=== PATIENT | male | born 1940 | race Caucasian/White ===

== ENCOUNTER 2018-11-10 07:22 | Day surgery (SDC) | payer MEDICARE, OTHER ==
[2018-11-10] MEDS ORDERED: NACL 0.9% 1000 ML 1,000 ML ONE (07:38)
[2018-11-10] MEDS ORDERED: NACL 0.9% 1000 ML 1,000 ML IV SCH (08:00)
[2018-11-10] MEDS ORDERED: WATER FOR IRRIG STERILE IR ONE (08:00)
[2018-11-10] MEDS ORDERED: XYLOCAINE 1% 20 mL ONE (08:27)
[2018-11-10] MEDS ORDERED: DIPRIVAN 10 MG/ML IV ONE ×2 (08:27)
[2018-11-10] MEDS ORDERED: VERSED ONE (08:27)
--- NOTE | 2018-11-10 09:30 | Operative Report ---
PROCEDURE: EGD with biopsy. INDICATIONS: A 78-year-old gentleman originally from [facility] who had been having some loose stools, abdominal pain. EGD was done to make sure he did not have any associated celiac disease. DESCRIPTION OF PROCEDURE: Procedure was done after getting informed consent with MAC anesthesia. Instrument was passed through the hypopharynx into the esophagus, which showed moderate erosive esophagitis. Photo documentation and biopsy was obtained. Stomach showed gastric erosion, mainly in the antrum and gastritis. Biopsy was done from the gastric antrum, gastric body and angular incisura to rule out for H. pylori and atrophic gastritis. The pylorus was patent. The duodenum in the bulb showed duodenitis. Biopsy was done from the second part to rule out for possible celiac disease. There was minimal bleeding from the biopsy sites. No complications associated with the procedure. Procedure was done with the assistance of anesthesia and then in the presence and with the assistance of the GI lab team, which included Yarelis CRABTREE and Lavon jasso. ASSESSMENT: Abdominal pain and GERD, moderate erosive esophagitis, gastric erosion, gastritis, duodenitis, celiac disease. PLAN: Wait for the biopsy results. The patient will be advised to avoid aspirin and aspirin-related products for the next few days. Follow up in the office in 1-2 weeks' time and treatment with PPI and again procedure was done in the presence of Yarelis CRABTREE and with the assistance of the Lavon jasso. JOB# [id number] SARAH/YEE
--- NOTE | 2018-11-10 09:32 | Procedure Note ---
Date of procedure: 11/10/18 Pre-op diagnosis: Abdominal Pain/ Diarrhea/ H/O Colon Polyps Post-op diagnosis: other (Moderate,Erosive Esophagitis/Gastric Erosion/Gastritis/Duodenitis/R/O Celiac Disease/ Multiple,Small colon Polyps (Rectal and Transverse Colon)/Extensive,Deep Diverticular Disease/Mild to Moderate, Internal Hemorrhoid) Procedure: EGD with Biopsy and Colonoscopy with Snare Polypectomy and Hot and Cold Biopsy Anesthesia: [facility] [place] Surgeon: ANGIE HOU Estimated blood loss: minimal Pathology: list Specimen disposition: to lab Condition: stable Disposition: same day (Treat with PPI and encourage fiber intake and follow up in 1 to 2 weeks ([phone]). Resume home medication but avoid aspirin and NSAID and anticoagulants for 4 days.)
--- NOTE | 2018-11-10 09:34 | Operative Report ---
PROCEDURE: Colonoscopy with snare polypectomy and hot and cold biopsy. INDICATIONS: A 78-year-old gentleman originally from [facility] who has a prior history of a large colon polyp. DESCRIPTION OF PROCEDURE: The procedure was done to make sure there was not any recurrence of any polyps. The procedure was done with MAC anesthesia. Initial rectal exam was unremarkable. Instrument was passed through the rectum onto the cecum, which was identified with ileocecal valve and the appendiceal orifice. The patient had scattered diverticula throughout the colon, most pronounced in the left colon, some of which were quite deep. In the transverse colon, there were four small polyps noted from the proximal to the distal colon. These were removed by cold biopsy and remaining part of the descending colon and sigmoid showed normal mucosa. There was a moderate polyp about 9-10 mm in diameter that was removed by cold biopsy and removed by snare polypectomy and the remnants were removed by using hot biopsy forceps. There was minimal bleeding from the biopsy sites. No complications associated with the procedure. The patient also had mild to moderate internal hemorrhoids. ASSESSMENT: 1. History of colon polyps, multiple colon polyps noted in the rectum and in the transverse colon removed by cold snare polypectomy as well as using the biopsy forceps. Mild to moderate internal hemorrhoid and extensive deep diverticular disease. The patient will be asked to avoid aspirin and aspirin-related products for the next few days. Encouraged to take fiber supplements. Follow up in the office in 1-2 weeks' time. The procedure was done with the assistance of anesthesia and in the presence and with the assistance of the GI lab team, which included Yarelis CRABTREE and Lavon jasso. JOB# [id number] SARAH/YEE
[2018-11-10 09:46] VITALS: BP 114/60
--- NOTE | 2018-11-10 12:48 | Anesthesia Day of Surgery ---
Anesthesia Day of Surgery - Day of Surgery Patient Examined: Yes Patient H&P Reviewed: Yes Patient is NPO: Yes
--- NOTE | 2018-11-10 12:51 | Anesthesia Consultation ---
Anesthesia Consult and Med Hx Date of service: 11/10/18 - Airway Anesthetic Teeth Evaluation: Good ROM Head & Neck: Adequate Mental/Hyoid Distance: Adequate Mallampati Class: Class III Intubation Access Assessment: Possibly Difficult - Pre-Operative Health Status ASA Pre-Surgery Classification: ASA3 Proposed Anesthetic Plan: MAC - Cardiovascular System Hx Hypertension: Yes Hx Coronary Artery Disease: Yes (CABG, STENTS, HIGH CHOLESTEROL) - Other Systems Hx Cancer: Yes (PROSTATE) - Additional Comments Anesthesia Medical History Comments: Per Dr. Fontaine, Patient has cardiac clearance at his office. Ok to proceed.
== END 2018-11-10 07:23 | disposition home or self-care (01) ==
LOC: GIO 07:22
DX: K29.50 Unspecified chronic gastritis without bleeding (principal); K21.0 Gastro-esophageal reflux disease with esophagitis; K63.5 Polyp of colon; K62.1 Rectal polyp; K31.89 Other diseases of stomach and duodenum; K57.30 Diverticulosis of large intestine without perforation or abscess without bleeding; K90.0 Celiac disease; K64.8 Other hemorrhoids; K29.80 Duodenitis without bleeding; I10 Essential (primary) hypertension; I25.10 Atherosclerotic heart disease of native coronary artery without angina pectoris; Z95.5 Presence of coronary angioplasty implant and graft; Z85.46 Personal history of malignant neoplasm of prostate; Z95.1 Presence of aortocoronary bypass graft; Z79.82 Long term (current) use of aspirin; Z79.899 Other long term (current) drug therapy; Z88.2 Allergy status to sulfonamides; Z88.8 Allergy status to other drugs, medicaments and biological substances
CPT/HCPCS: 43239; 45380; 45385; 88305; 88342; J2250; J2704; J7030

== ENCOUNTER 2020-11-14 08:09 | Day surgery (SDC) | payer MEDICARE ==
[~2020-11-14 08:09] MED LIST: SODIUM CHLORIDE 0.9% 1000 ML 1,000 ML IV SCH
--- NOTE | 2020-11-14 08:54 | Anesthesia Consultation ---
Anesthesia Consult and Med Hx Date of service: 11/14/20 - Airway Anesthetic Teeth Evaluation: Good ROM Head & Neck: Adequate Mental/Hyoid Distance: Adequate Mallampati Class: Class III Intubation Access Assessment: Possibly Difficult - Pre-Operative Health Status ASA Pre-Surgery Classification: ASA3 Proposed Anesthetic Plan: MAC - Pulmonary Hx Smoking: No Hx Respiratory Symptoms: No - Cardiovascular System Hx Hypertension: Yes (took losartan this morning) Hx Coronary Artery Disease: Yes (off ASA x2 days) Hx Heart Attack/AMI: No Hx Percutaneous Transluminal Coronary Angioplasty (PTCA): Yes (remote hx stents x2) - Central Nervous System CVA: No - Endocrine Hx Renal Disease: No Hx Liver Disease: No Hx Insulin Dependent Diabetes: No Hx Non-Insulin Dependent Diabetes: No Hx Hypothyroidism: Yes - Additional Comments Anesthesia Medical History Comments: No hx anesthetic complications.
--- NOTE | 2020-11-14 08:54 | Anesthesia Day of Surgery ---
Anesthesia Day of Surgery - Day of Surgery Patient Examined: Yes Patient H&P Reviewed: Yes Patient is NPO: Yes
[2020-11-14] MEDS ORDERED: propofoL 200 MG/20 ML VIAL IV ONE ×3 (09:18→10:12)
[2020-11-14] MEDS ORDERED: fentaNYL 100 MCG/2 ML INJ ONE (09:18)
[2020-11-14] MEDS ORDERED: GLYCOPYRROLATE 0.4 MG/2 ML INJ ONE (09:29)
[2020-11-14] MEDS ORDERED: LIDOCAINE MPF (2%) 20 MG/1 ML VIAL 5 ML ONE (09:30)
[2020-11-14] MEDS ORDERED: ONDANSETRON 4 MG/2 ML INJ ONE (09:41)
--- NOTE | 2020-11-14 10:30 | Procedure Note ---
Date of procedure: 11/14/20 Pre-op diagnosis: Dytpspesia/ Colon Polyp Screening/ P/H/O Colon Polyps Post-op diagnosis: other (Mild to moderate Erosive Esophagitis/ Gastritis/ R/O Celiac disease/ Colon Polyps (three) in the Transverse Colon/ Moderate, Diverticular disease (most pronounced in the left colon)/Mild to Moderate Internal Hemorrhoid) Procedure: EGD with Biopsy/ Colonoscopy with Cold Snare Polypectomy and Cold Biopsy Anesthesia: [facility] [place] Surgeon: ANGIE HOU Estimated blood loss: minimal Pathology: none Specimen disposition: to lab Condition: stable Disposition: same day (Treat with PPI, and encourage fiberintake. Avoid aspirin ad NSAID and anticoagulants for 5 days and avoid Alcohol and F/U in 2 weeks ([phone]).)
[2020-11-14 11:16] VITALS: BP 143/69
--- NOTE | 2020-11-14 11:20 | Post Anesthesia Evaluation ---
- Post Anesthesia Evaluation Patient Participated: Yes Airway Patent: Yes Stable Respiratory Function: Yes Nausea/Vomiting: No Temp > 96.8F: Yes Pain Manageable: Yes Adequeate Hydration: Yes Anesthesia Complications: No
--- NOTE | 2020-11-14 11:36 | Operative Report ---
DATE OF SURGERY: 11/14/2020 PROCEDURE: Colonoscopy with cold snare polypectomy and biopsy done. DESCRIPTION OF PROCEDURE: He had EGD done prior to the colonoscopy, which showed moderate erosive esophagitis, gastritis and biopsy was also done to rule out for possible celiac disease. Initial rectal examination was unremarkable. The instrument was passed through the rectum onto the cecum. The patient had a redundant colon with some degree of difficulties. Visualization was fair to good. The mucosa had to be washed with copious amounts of water since the patient's prep was fair to good as stated above. There was diverticular disease noted throughout the colon, most pronounced in the left colon. The cecum, ascending colon showed a few scattered diverticula. There were 3 colon polyps noted in the transverse colon, 2 in the proximal, one in the mid. The two proximal transverse colon polyps were removed with cold snare polypectomy and retrieved and a smaller one was removed by cold biopsy. Again, there was moderate diverticular disease, some of which were deep in the left colon and the rectum showed mild to moderate internal hemorrhoid. There was minimal bleeding associated with the procedure. No complications associated with the procedure. ASSESSMENT: History of colon polyps. Colon polyps were noted in the transverse colon, 3 in number, moderate deep diverticular disease, most pronounced in the left colon, mild to moderate internal hemorrhoid. POSTOPERATIVE PLAN: The patient will be asked to avoid aspirin and aspirin-related products for the next few days. Encouraged to take fiber supplements and follow up in the office in 1-2 weeks' time. The patient will also be placed on PPI because of the EGD findings of esophagitis and gastritis. Further treatment adjustment will be according to the biopsy findings. TID: [id number] RECEIPT: [id number] SARAH/PUHSPA
--- NOTE | 2020-11-14 12:27 | Operative Report ---
DATE OF SURGERY: 11/14/2020 PROCEDURE: EGD with biopsy. INDICATIONS: A 78-year-old gentleman who has been complaining of dyspeptic symptoms. EGD was done to make sure there was not any significant upper gastrointestinal pathology present. DESCRIPTION OF PROCEDURE: The procedure was done after getting informed consent with MAC anesthesia. The instrument was passed through the hypopharynx into the esophagus, which showed moderate erosive esophagitis. The stomach showed gastritis. Biopsy was done from the gastric antrum, gastric body and angular incisura to rule out for H. pylori and atrophic gastritis. Biopsy was also done from the distal esophagus to assess for the severity of the erosive esophagitis. The pylorus is patent. The duodenum in the first and second portion appeared normal. Biopsy was done from the second part of the duodenum to rule out for possible celiac disease. There was minimal bleeding associated with the procedure. No complications associated with the procedure. IMPRESSION: Dyspepsia, moderate erosive esophagitis, gastritis, rule out celiac disease. PLAN: To treat the patient with PPI, have the patient avoid aspirin and aspirin-related products. A colonoscopy will be done for further assessment to see whether the patient has any colon polyps. He has prior history of colon polyps and he will be asked to follow up in the office in 1-2 weeks' time. Procedure was done in the GI lab with assistance of the GI lab team, which included the GI nurse, graphics edit technician and anesthesia. TID: [id number] RECEIPT: [id number] BRAD
== END 2020-11-14 11:05 | disposition home or self-care (01) ==
LOC: GIO 08:09
DX: Z12.11 Encounter for screening for malignant neoplasm of colon (principal); R13.10 Dysphagia, unspecified; K29.50 Unspecified chronic gastritis without bleeding; K21.00 Gastro-esophageal reflux disease with esophagitis, without bleeding; D12.3 Benign neoplasm of transverse colon; K63.89 Other specified diseases of intestine; K31.89 Other diseases of stomach and duodenum; I10 Essential (primary) hypertension; I25.10 Atherosclerotic heart disease of native coronary artery without angina pectoris; N40.0 Benign prostatic hyperplasia without lower urinary tract symptoms; Z86.010 Personal history of colon polyps; Z88.2 Allergy status to sulfonamides; Z88.8 Allergy status to other drugs, medicaments and biological substances; Z79.82 Long term (current) use of aspirin; Z79.899 Other long term (current) drug therapy; Z98.890 Other specified postprocedural states
CPT/HCPCS: 43239; 45380; 45385; 88305; J2405; J2704; J3010; J7030; 88342

== ENCOUNTER 2021-12-11 10:32 | Day surgery (SDC) | payer MEDICARE ==
--- NOTE | 2021-12-11 12:23 | Anesthesia Consultation ---
Anesthesia Consult and Med Hx Date of service: 12/11/21 - Airway Anesthetic Teeth Evaluation: Good ROM Head & Neck: Adequate Mental/Hyoid Distance: Adequate Mallampati Class: Class III Intubation Access Assessment: Possibly Difficult - Pre-Operative Health Status ASA Pre-Surgery Classification: ASA3 Proposed Anesthetic Plan: MAC - Pulmonary Hx Smoking: No Hx Respiratory Symptoms: No - Cardiovascular System Hx Hypertension: Yes (took losartan today) Hx Coronary Artery Disease: Yes (s/p 3v CABG ~2013) Hx Heart Attack/AMI: No Hx Cardia Arrhythmia: No - Central Nervous System CVA: No - Endocrine Hx Renal Disease: No Hx Liver Disease: No Hx Insulin Dependent Diabetes: No Hx Non-Insulin Dependent Diabetes: No Hx Hypothyroidism: Yes - Additional Comments Anesthesia Medical History Comments: No hx anesthetic complications.
--- NOTE | 2021-12-11 12:24 | Anesthesia Day of Surgery ---
Anesthesia Day of Surgery - Day of Surgery Patient Examined: Yes Patient H&P Reviewed: Yes Patient is NPO: Yes
[2021-12-11] MEDS ORDERED: propofoL 200 MG/20 ML VIAL IV ONE ×3 (12:40→13:21)
--- NOTE | 2021-12-11 13:38 | Procedure Note ---
Date of procedure: 12/11/21 Pre-op diagnosis: Colon Polyp Screening/ H/O Colon Polyps Post-op diagnosis: other (Multiple, Transverse Colon Polyps/ Left, Colon Dioverticular Disease ( Deep ad Moderately severe)/ No Internal Hemorrhoids) Procedure: Colonoscopy with Cold Biopsy/ Hot and Cold Snare Polypectomy Anesthesia: MAC Surgeon: ANGIE HOU Estimated blood loss: minimal Pathology: list Specimen disposition: to lab Condition: stable Disposition: same day (Avoid aspirin ad NSAID and anticoagulats for 5 days; otherwise resume previous medication and F/U in 2 - 3 weeks and encourage fiber intake.)
--- NOTE | 2021-12-11 13:57 | Operative Report ---
DATE OF SURGERY: 12/11/2021 PROCEDURE: Colonoscopy. INDICATIONS: This is a 81-year-old gentleman who has prior history of colon polyp. Colonoscopy was done to repeat and check for any additional polyps. DESCRIPTION OF PROCEDURE: Procedure was done after getting informed consent with MAC anesthesia. Initial rectal examination was unremarkable. The instrument was passed through the rectum onto the cecum, which was identified with ileocecal valve and appendiceal orifice. Visualization was fair. Cecum, ascending colon showed normal mucosa. In the proximal transverse colon, there were 3 medium sized polyps ranging in size from 10-13 mm in diameter. These were removed by hot snare polypectomy and retrieved. In the mid transverse, there were 3 polyps, also noted to be removed by cold biopsy and one by cold snare polypectomy and also retrieved. There were a few diverticula in the distal transverse colon and moderately severe diverticular disease, some of which were deep in the left colon. The rectum did not show any internal hemorrhoids. There was minimal bleeding associated with the polypectomy. ASSESSMENT: Colon polyp screening, history of colon polyps, multiple transverse colon polyps noted and removed by hot and cold snare polypectomy and cold biopsy. Moderate deep diverticular disease involving the left colon and the distal transverse colon. No internal hemorrhoids noted. Prep was fair. The patient will be asked to avoid aspirin and aspirin-related products for the next few days and to take fiber supplements and to follow up in the office in 1-2 weeks' time. The patient will be asked to resume previous medication except for aspirin and aspirin-related products, which will be held for 5 days. Procedure was done in the GI lab with assistance of the GI lab team, which included the GI nurse, the facilities maintenance technician and anesthesia. The patient will be asked to follow up in 1-2 weeks' time. TID: [id number] RECEIPT: [id number] SARAH/PUSHPA
[2021-12-11 16:59] VITALS: BP 104/50
== END 2021-12-11 14:00 | disposition home or self-care (01) ==
LOC: GIO 10:32
DX: Z12.11 Encounter for screening for malignant neoplasm of colon (principal); D12.3 Benign neoplasm of transverse colon; K57.30 Diverticulosis of large intestine without perforation or abscess without bleeding; I25.10 Atherosclerotic heart disease of native coronary artery without angina pectoris; I10 Essential (primary) hypertension; E03.9 Hypothyroidism, unspecified; Z95.5 Presence of coronary angioplasty implant and graft; Z86.010 Personal history of colon polyps; Z88.8 Allergy status to other drugs, medicaments and biological substances; Z79.899 Other long term (current) drug therapy; Z79.82 Long term (current) use of aspirin; Z85.46 Personal history of malignant neoplasm of prostate; Z98.890 Other specified postprocedural states
CPT/HCPCS: 45380; 45385; 88305; J2704; J7030